=== PATIENT | male | born 1985 | race Caucasian/White ===

== ENCOUNTER 2016-09-13 17:37 | Emergency (ER) | payer BC ==
[2016-09-13 18:24] VITALS: BP 122/61
[2016-09-13] MEDS ORDERED: HYDROcodone/ACETAMIN 5-325 MG* 1 TAB PO ONE (18:48)
[2016-09-13] MEDS ORDERED: Cyclobenzaprine TAB* 10 MG PO ONE (18:49)
--- NOTE | 2016-09-13 19:29 | RAD ---
INDICATION: Low back pain, history of melanoma. COMPARISON: Comparison is made with a prior x-ray study of the lumbar spine from September 03, 2003. TECHNIQUE: 5 views of the lumbar spine were obtained including lateral, oblique, AP and a coned-down lateral view of the lumbar sacral junction. FINDINGS: The vertebra are in normal alignment. No fracture is seen. Disc spaces appear maintained. IMPRESSION: NEGATIVE EXAM.
[2016-09-13] MEDS ORDERED: Ondansetron ODT TAB* 4 MG PO ONE (19:33)
--- NOTE | 2016-09-13 22:48 | UC ---
David Ortiz Anna, scribed for Awilda Kwan MD on 09/13/16 at 1835 . Back Pain HPI - HPI Summary HPI Summary: Patient is a 31 y/o male [place] [facility] [place] with the sudden onset of sharp, constant lower back pain that began this morning at 0430. He had noticed small back pains in the last few days. Per triage notes, the patient describes the severity of the pain as 10/10 and radiating to his legs bilaterally. The pain was somewhat alleviated by the use of IcyHot and Aleve today at 1300. He also used a muscle relaxer, tizanidine, that was his mother's. The pain returned this afternoon such force that he was not able to walk to the bathroom. He denies any trauma or back injury. He denies incontinence of changes in urination or BM. 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 He additionally reports rhinorrhea, which he believe he caught from his son, who had a viral respiratory illness. His history is significant for melanoma CA on his neck and a radial neck surgery. He has not seen his oncologist in six years. His melanoma did not spread elsewhere in his body. - History of Current Complaint Chief Complaint: UCBackPain Stated Complaint: BACK PAIN Hx Obtained From: Patient, Family/Commissioning Editor - Accompanied by Onset/Duration: Sudden Onset, Lasting Hours, Still Present Timing: Constant Severity Initially: Moderate Severity Currently: Severe Pain Intensity: 10 Pain Scale Used: 0-10 Numeric Back Pain: Is Discrete @ - low lumbar, Radiates To - bilateral legs Character: Sharp Aggravating: Walking Alleviating: Heat - IcyHot, Cold - IcyHot Associated Signs And Symptoms: Negative: Weakness, Numbness, Tingling, Bladder Incontinence, Bowel Incontinence Related History: Previous Back Injury - one year ago, when working as a 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, was resolved in 24 hours - Allergies/Home Medications Allergies/Adverse Reactions: Allergies Allergy/AdvReac Type Severity Reaction Status Date / Time No Known Allergies Allergy Verified 09/13/16 18:17 Home Medications: Home Medications Naproxen Sodium-Diphenhydramin [Aleve PM 220-25 mg] 1 tab PO BID PRN 09/13/16 [ History Confirmed 09/13/16] PMH/Surg Hx/FS Hx/Imm Hx - Additional Past Medical History Additional PMH: Hx of Melanoma on neck, which did not spread, but required radical neck surgery Previously Healthy: No - melanoma Endocrine History Of: Denies: Diabetes, Thyroid Disease Cardiovascular History Of: Denies: Cardiac Disorders, Hypertension Respiratory History Of: Denies: COPD, Asthma GI/ History Of: Denies: Ulcer - Surgical History Surgical History: Yes Surgery Procedure, Year, and Place: MULTIPLE SURGERIES, 23, INCLUDING A RADICAL NECK SURGERY, A RESULT OF MELANOMA - Family History Known Family History: Positive: Cardiac Disease - Father has pacemaker Negative: Other - Denies FHx melanoma - Social History Occupation: Employed Full-time Lives: With Family Alcohol Use: Occasionally Substance Use Type: None Smoking Status (MU): Heavy Every Day Tobacco Smoker Type: Cigarettes Amount Used/How Often: 1/2 PPD, 15+ YEARS Review of Systems Constitutional: Negative Skin: Negative Eyes: Negative ENT: Nasal Discharge - rhinorrhea Respiratory: Negative Cardiovascular: Negative Gastrointestinal: Negative Genitourinary: Negative Motor: Negative Neurovascular: Negative Musculoskeletal: Arthralgia, Myalgia Neurological: Negative Psychological: Negative All Other Systems Reviewed And Are Negative: Yes Physical Exam Triage Information Reviewed: Yes Appearance: Well-Appearing, Well-Nourished, Pain Distress Vital Signs: Initial Vital Signs Temp 98.9 F 09/13/16 18:18 Pulse 78 09/13/16 18:18 Resp 16 09/13/16 18:18 BP 122/61 09/13/16 18:18 Pulse Ox 100 09/13/16 18:18 Elevated blood pressure noted. Vital Signs Reviewed: Yes Eyes: Positive: Conjunctiva Clear ENT Exam: Normal Neck: Positive: Supple Respiratory: Positive: Lungs clear, Normal breath sounds, No respiratory distress Cardiovascular: Positive: RRR, No Murmur, Pulses Normal, Brisk Capillary Refill Abdomen Description: Positive: Nontender, Soft. Negative: CVA Tenderness (R), CVA Tenderness (L), Distended, Guarding, Hepatomegaly, McBurney's Point Tenderness, Peritoneal Signs, Pulsatile Mass, Splenomegaly Bowel Sounds: Positive: Present Musculoskeletal Exam: Other - Spinal tenderness in low lumbar region down into sacrum. No foot drop. Musculoskeletal: Positive: Strength Intact, ROM Limited @ - lower back Neurological: Positive: Alert, Muscle Tone Normal, Other: - able to walk on heels and toes, plantar and ankle reflexes 2+ symmetric Psychological Exam: Normal Skin Exam: Normal Diagnostics - Radiology Lumbar Spine XR Xray Interpretation: No Acute Changes Radiology Interpretation Completed By: Radiologist - IMPRESSION: Negative exam. Re-Evaluation - Re-Evaluation First Eval Re-Evaluation Time: 19:29 Comment: Discussed current patient condition. He is feeling somewhat nauseous at this time. Second Eval Re-Evaluation Time: 19:35 Comment: Discussed results of XR and UA. Discussed plan for disposition. Patient and family are agreeable with plan. Back Pain Course/Dx - Course Course Of Treatment: High blood pressure noted. Accepts analgesics and Flexeril. POC urine WNL. Strongly encouraged him to go to his oncologist and follow up. Discussed seeking medical attention immediately with incontinence of urine or BM. - Differential Dx/Diagnosis Differential Diagnosis/HQI/PQRI: Cauda Equina Syndrome, Compressive Cord Syndrome, Herniated Disc, Neoplasm, Strain, Sprain Provider Diagnoses: Acute lumbosacral strain. Tobacco Abuse Disorder. High blood pressure without diagnosis of hypertension. Discharge - Discharge Plan Condition: Stable Disposition: HOME Prescriptions: Cyclobenzaprine TAB* [Flexeril 10 MG TAB*] 10 mg PO TID PRN #15 tab PRN Reason: Pain HYDROcodone/ACETAMIN 5-325 MG* [[place] 5-325 TAB*] 1 tab PO Q4H PRN #18 tab MDD 6 PRN Reason: Pain Ondansetron ODT TAB* [Zofran Odt TAB*] 4 mg PO Q8H PRN #20 tab.odt PRN Reason: Nausea Patient Education Materials: Low Back Strain (ED) Forms: *Work Release Referrals: Paty Miller NP [Primary Care Provider] - 10/13/16 (Follow up with primary care physician within one month regarding your elevated blood pressure. 122/61, sooner if your back pain continues. ) Additional Instructions: RETURN TO URGENT CARE FOR ANY NEW OR WORSENING SYMPTOMS The documentation as recorded by the David marshall Anna accurately reflects the service I personally performed and the decisions made by , Awilda Kwan MD.
== END 2016-09-13 20:19 | disposition home or self-care (01) ==
LOC: UCEAST 17:37
DX: S39.012A Strain of muscle, fascia and tendon of lower back, initial encounter (principal); X58.XXXA Exposure to other specified factors, initial encounter; Y93.9 Activity, unspecified; Y92.9 Unspecified place or not applicable; R03.0 Elevated blood-pressure reading, without diagnosis of hypertension; Z85.820 Personal history of malignant melanoma of skin; F17.210 Nicotine dependence, cigarettes, uncomplicated
CPT/HCPCS: 72110; 81003; 99212; A9270-GY; G0463

== ENCOUNTER 2017-09-29 10:18 | Emergency (ER) | payer SELFPAY ==
[2017-09-29] MEDS ORDERED: NS 0.9% 1000 ML* 1,000 ML IV ONE (11:46)
[2017-09-29] MEDS ORDERED: Ketorolac INJ* 30 MG/ML 1 ML VIAL IV PUSH ONE (11:46)
--- NOTE | 2017-09-29 12:12 | RAD ---
INDICATION: Chest pain COMPARISON: None TECHNIQUE: An AP portable view obtained at 1200 hours is submitted. FINDINGS: Bones/Soft Tissues: There are no acute bony findings. Cardiomediastinal: The cardiomediastinal silhouette is normal. Lungs: There is linear change in the medial right upper lobe most consistent with scarring. Pleura: There are no pleural effusions. Other: None IMPRESSION: SUSPECT SCARRING MEDIAL RIGHT UPPER LOBE. NO ACUTE APPEARING FINDINGS
[2017-09-29 12:30] LABS: ABS Basophils 0.1 10^3/ul (0-0.2); ABS Eosinophils 0.2 10^3/ul (0-0.6); ABS Lymphocytes 1.7 10^3/ul (1.0-4.8); ABS Neutrophils 9.3 10^3/ul (1.5-7.7); ABS Nucleated RBC 0 10^3/ul; Eosinophil % 1.8 % (0-6); Hematocrit 45 % (42-52); Hemoglobin 15.2 g/dl (14.0-18.0); Mean Corpuscular HGB Conc 34 g/dl (31-36); Mean Corpuscular Hemoglobin 31 pg (27-31); Mean Corpuscular Volume 90 fL (80-94); Mean Platelet Volume 8.1 um3 (7.4-10.4); Nucleated Red Blood Cells % 0.1; Platelet Count 179 10^3/ul (150-450); Red Blood Count 4.95 10^6/ul (4.0-5.4); Red Cell Distribution Width 13 % (10.5-15); White Blood Count 12.3 10^3/ul (3.5-10.8)
[2017-09-29 12:47] LABS: EGFR Non-African American 107.3 (>60)
[2017-09-29 13:53] VITALS: BP 105/63
--- NOTE | 2017-09-29 17:33 | ED ---
HPI Chest Pain - HPI Summary HPI Summary: Patient is a 32-year-old male who presents to the emergency department for chest pain times several days. Patient describes pain as sharp and centered to his chest and radiates to his back. He states pain is worse when he takes a deep breath in. He denies recent illness, cough, fevers, abdominal pain, vomiting, diarrhea. He denies past medical history of high blood pressure, CAD , high cholesterol, strong family history of CAD. He is a daily smoker. Admits to marijuana use. Denies other illicit drugs. Denies excessive caffeine use. Denies known history of clotting disorder. Denies injury. 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 Symptoms are moderate in severity. Has not tried any [id number] analgesics for pain. - History of Current Complaint Chief Complaint: EDChestPainROMI Time Seen by Provider: 09/29/17 11:23 Hx Obtained From: Patient Pain Intensity: 5 Pain Scale Used: 0-10 Numeric - Allergy/Home Medications Allergies/Adverse Reactions: Allergies Allergy/AdvReac Type Severity Reaction Status Date / Time No Known Allergies Allergy Verified 09/13/16 18:17 Home Medications: Home Medications NK [No Home Medications Reported] 09/29/17 [History Confirmed 09/29/17] PMH/Surg Hx/FS Hx/Imm Hx Previously Healthy: Yes Endocrine/Hematology History: Denies: Hx Diabetes, Hx Thyroid Disease Cardiovascular History: Denies: Hx Hypertension Respiratory History: Denies: Hx Asthma, Hx Chronic Obstructive Pulmonary Disease (COPD) GI History: Denies: Hx Ulcer - Surgical History Surgery Procedure, Year, and Place: MULTIPLE SURGERIES, 23, INCLUDING A RADICAL NECK SURGERY, A RESULT OF MELANOMA Infectious Disease History: No Infectious Disease History: Denies: Hx Hepatitis, Hx Human Immunodeficiency Virus (HIV), History Other Infectious Disease, Traveled Outside the [place] in Last 30 Days - Family History Known Family History: Positive: Cardiac Disease - Father has pacemaker Negative: Other - Denies FHx melanoma - Social History Occupation: Employed Full-time Lives: With Family Alcohol Use: Rare Substance Use Type: Reports: Marijuana Smoking Status (MU): Heavy Every Day Tobacco Smoker Type: Cigarettes Amount Used/How Often: 1/2 PPD, 15+ YEARS Review of Systems Constitutional: Negative Positive: Fever, Chills Eyes: Negative ENT: Negative Positive: Chest Pain. Negative: Palpitations Positive: Shortness Of Breath. Negative: Cough Negative: Abdominal Pain, Vomiting, Diarrhea, Nausea Genitourinary: Negative Musculoskeletal: Negative Skin: Negative Neurological: Negative Positive: Headache Psychological: Normal All Other Systems Reviewed And Are Negative: Yes Physical Exam Triage Information Reviewed: Yes Vital Signs On Initial Exam: Initial Vitals Temp Pulse Resp BP Pulse Ox 99.5 F 87 20 113/59 100 09/29/17 10:20 09/29/17 10:20 09/29/17 10:20 09/29/17 10:20 09/29/17 10:20 Vital Signs Reviewed: Yes Appearance: Positive: Well-Appearing - Shimmering that in no acute distress. present. Skin: Positive: Warm, Dry Head/Face: Positive: Normal Head/Face Inspection Eyes: Positive: Normal Neck: Positive: Supple Respiratory/Lung Sounds: Positive: Clear to Auscultation, Breath Sounds Present Cardiovascular: Positive: Normal, RRR Abdomen Description: Positive: Nontender, Soft Musculoskeletal: Positive: Normal. Negative: Darryl Sign Left, Darryl Sign Right , Edema Left, Edema Right Neurological: Positive: Normal, CN Intact II-III Psychiatric: Positive: Normal Diagnostics - Vital Signs Vital Signs Temp Pulse Resp BP Pulse Ox 09/29/17 13:52 98.6 F 67 17 105/63 99 09/29/17 13:00 68 21 99 09/29/17 12:24 98 09/29/17 12:04 73 14 114/63 98 09/29/17 12:01 77 16 97 09/29/17 11:59 70 8 128/65 99 09/29/17 11:54 75 12 118/63 99 09/29/17 11:49 69 14 112/69 98 09/29/17 11:44 73 10 120/75 99 09/29/17 11:39 72 12 117/74 98 09/29/17 11:34 78 16 118/71 99 09/29/17 11:29 73 9 124/67 97 09/29/17 10:20 99.5 F 87 20 113/59 100 - Laboratory Lab Results: Lab Results 09/29/17 09/29/17 09/29/17 Range/Units 12:10 12:10 12:10 WBC 12.3 H (3.5-10.8) 10^3/ul RBC 4.95 (4.0-5.4) 10^6/ul Hgb 15.2 (14.0-18.0) g/dl Hct 45 (42-52) % MCV 90 (80-94) fL MCH 31 (27-31) pg MCHC 34 (31-36) g/dl RDW 13 (10.5-15) % Plt Count 179 (150-450) 10^3/ul MPV 8.1 (7.4-10.4) um3 Neut % (Auto) 75.6 (38-83) % Lymph % (Auto) 14.0 L (25-47) % Harvey % (Auto) 8.0 H (0-7) % Eos % (Auto) 1.8 (0-6) % Baso % (Auto) 0.6 (0-2) % Absolute Neuts (auto) 9.3 H (1.5-7.7) 10^3/ul Absolute Lymphs (auto) 1.7 (1.0-4.8) 10^3/ul Absolute Monos (auto) 1.0 H (0-0.8) 10^3/ul Absolute Eos (auto) 0.2 (0-0.6) 10^3/ul Absolute Basos (auto) 0.1 (0-0.2) 10^3/ul Absolute Nucleated RBC 0 10^3/ul Nucleated RBC % 0.1 ESR 11 (0-14) mm/Hr D-Dimer, Quantitative < 200 (Less Than 230) ng/mL Sodium 138 L (139-145) mmol/L Potassium 4.2 (3.5-5.0) mmol/L Chloride 105 (101-111) mmol/L Carbon Dioxide 28 (22-32) mmol/L Anion Gap 5 (2-11) mmol/L BUN 15 (6-24) mg/dL Creatinine 0.84 (0.67-1.17) mg/dL Est GFR ( Amer) 138.0 (>60) Est GFR (Non-Af Amer) 107.3 (>60) BUN/Creatinine Ratio 17.9 (8-20) Glucose 91 (70-100) mg/dL Calcium 9.4 (8.6-10.3) mg/dL Total Bilirubin 0.50 (0.2-1.0) mg/dL AST 12 L (13-39) U/L ALT 13 (7-52) U/L Alkaline Phosphatase 78 (34-104) U/L Troponin I 0.00 (<0.04) ng/mL Total Protein 6.7 (6.4-8.9) g/dL Albumin 4.3 (3.2-5.2) g/dL Globulin 2.4 (2-4) g/dL Albumin/Globulin Ratio 1.8 (1-3) Result Diagrams: 09/29/17 12:10 09/29/17 12:10 Lab Statement: Any lab studies that have been ordered have been reviewed, and results considered in the medical decision making process. Chest Pain Course/Dx - Course Course Of Treatment: Patient presenting to the emergency department for sharp chest pain times several days that is worse with inspiration. He is afebrile with stable vital signs. We'll obtain basic labs, chest x-ray, EKG, give fluids and IV Toradol. PERC score is 0. ECG done at 1021 is a sinus rhythm at 81 bpm, normal axis, appropriate intervals, early repolarization. Chest x-ray shows suspected scarring to the middle right upper lobe, no acute findings, reading per radiology. Minimal elevation of WBC of 12.3. Negative sedimentation rate, troponin, and d-dimer. On reexamination patient's resting comfortably. He declined Toradol stating he does not like to take medication. Suspect musculoskeletal etiology of patient's pain. He was still advised to follow-up with his family doctor closely if symptoms continue. Continue Tylenol and Motrin for pain at home as directed. To return to the ER symptoms change or worsen. Patient understands and agrres with plan. - Diagnoses Provider Diagnoses: Atypical chest pain Discharge - Sign-Out/Discharge Documenting (check all that apply): Discharge - Discharge Plan Condition: Good Disposition: HOME Patient Education Materials: Chest Pain (ED), Pleurisy (ED) Referrals: Ger Foy MD [Primary Care Provider] - Additional Instructions: Call PCP today for an appointment Tylenol or Motrin for pain as directed Return to ER if symptoms change or worsen - Billing Disposition and Condition Condition: GOOD Disposition: HOME
== END 2017-09-29 13:52 | disposition home or self-care (01) ==
LOC: ED 10:18
DX: R07.89 Other chest pain (principal); Z82.49 Family history of ischemic heart disease and other diseases of the circulatory system; F17.210 Nicotine dependence, cigarettes, uncomplicated
CPT/HCPCS: 36415; 71045; 80053; 84484; 85025; 85379; 85652; 93005; 96360; 96374; 99283; J1885